=== PATIENT | male | born 1950 | race Caucasian/White ===

== ENCOUNTER 2018-12-02 18:26 | Emergency (ER) | payer MEDICARE, SELFPAY ==
[2018-12-02 18:26] VITALS: BP 138/88; PULSE 117; RESP 18; TEMP 36.3; O2SAT 95; BMI 33.0
--- NOTE | 2018-12-02 18:46 | ED.DCSUM_ITS ---
- ER Visit Summary Date of Service: 12/02/18 Chief Complaint: Right thumb laceration History of Present Illness: The patient is a 68 M with a laceration to the right thumb. He was working with a wrench when it slipped and his right hand hit a rested part of a truck. It cut him on the base of the right thumb. His last tetanus shot is unknown. He was able to apply pressure and stop the bleeding at home. Physical Examination: Signs reviewed. Right hand exam reveals a 1.5 cm lacer ation at the base of the right thumb. There is no bleeding at this time. It is tender to palpation. He has full range of motion of the thumb. Test Results: None performed Emergency Department Course and Treatment: 4, 5?0 simple nylon sutures were placed in the right thumb. Lidocaine was used to anesthetize the area. Chlorhexidine was used to cleanse the area. I explored the wound and he has full range of motion without any tendon involvement. He will have the sutures out in 7-10 days. Treatment Plan: [] Disposition: Discharge Impression: Right thumb laceration, 1.5 cm Laceration repair by ED physician This note was generated with [employer] dictation software. It may contain incorrect words, spelling, and punctuation that were not noted in review of the chart prior to signing ED Disposition - Plan for ED Patient: Referrals: Alvarez Norris MD [Primary Care Provider] -
[2018-12-02] MEDS: Diphth,Pertuss(Acell),Tet Vac 0.5 ML Vial IM (18:57)
--- NOTE | 2018-12-02 19:16 | ED.DEP ---
ED Disposition - Plan for ED Patient: Disposition: Home or Assisted Living Instructions: ED Laceration All Referrals: Alvarez Nroris MD [Primary Care Provider] -
== END 2018-12-02 19:28 | disposition home or self-care (01) ==
PROVIDERS: Emergency Provider Emergency Medicine
DX: S61.011A Laceration without foreign body of right thumb without damage to nail, initial encounter (principal); W22.8XXA Striking against or struck by other objects, initial encounter; Y93.9 Activity, unspecified; Y92.9 Unspecified place or not applicable; I10 Essential (primary) hypertension; E03.9 Hypothyroidism, unspecified; G47.33 Obstructive sleep apnea (adult) (pediatric); Z79.01 Long term (current) use of anticoagulants; Z79.899 Other long term (current) drug therapy; Z72.0 Tobacco use
CPT/HCPCS: 12001; 90471; 90715; 99283

== ENCOUNTER → 2021-01-29 12:51 | Outpatient (CLI) | payer MEDICARE, SELFPAY ==
--- NOTE | 2021-01-29 12:54 | CT_ITS ---
STUDY: CT MAXILLOFACIAL SINUSES REASON FOR EXAM: Male, 70 years old. RECURRENT SINUSITIS RADIATION DOSAGE (If Supplied By Facility): CTDIvol = ( 33.06 ) mGy, DLP = ( 854.51 ) mGycm TECHNIQUE: The patient was scanned in a multi detector CT scanner. High resolution axial imaging was performed without the administration of intravenous contrast material. Sagittal and coronal images were reconstructed. Individualized dose optimization techniques were used for this CT. COMPARISON: None. FINDINGS: FRONTAL SINUSES: Opacification the right frontal sinus consistent with sinusitis. ETHMOIDAL SINUSES: Opacification of multiple right ethmoid air cells consistent with sinusitis. MAXILLARY SINUSES: Normal aeration, without mucosal inflammatory disease. SPHENOIDAL SINUSES: Mucosal thickening of the right sphenoid sinus consistent with sinusitis. The ostiomeatal units are occluded bilaterally. Normal bilateral middle turbinates. Normal bilateral inferior turbinates. There is a right sided nasal septal deviation with a right sided nasal septal spur. There is patency of the bilateral nasal airways. The visualized osseous structures are normal. The visualized bilateral orbital contents are normal. CT/Sinus/Facial Bone IMPRESSION: 1. Chronic right frontal, ethmoid, and sphenoid sinusitis. 2. Deviation of nasal septum to the right with a bony spur projecting between the right middle and inferior turbinates. 3. Occluded ostiomeatal units bilaterally. Electronically Signed: Kieran Orellana MD at 14:44 EDT Tel , Service support ,
== END ==
PROVIDERS: PCP Family Medicine; Referring Provider Otolaryngology Otolaryngology/Facial Plastic Surgery; Visit Provider Otolaryngology Otolaryngology/Facial Plastic Surgery
DX: J01.11 Acute recurrent frontal sinusitis (principal)
CPT/HCPCS: 70486

== ENCOUNTER → 2021-04-21 15:21 | Outpatient (CLI) | payer MEDICARE, SELFPAY | PROVIDERS: PCP Family Medicine; Referring Provider Otolaryngology Otolaryngology/Facial Plastic Surgery; Visit Provider Otolaryngology Otolaryngology/Facial Plastic Surgery | DX: J32.9 Chronic sinusitis, unspecified (principal) | CPT/HCPCS: 87070; 87205 ==

== ENCOUNTER 2021-12-21 14:03 | Outpatient (CLI) | payer MEDICARE, SELFPAY ==
[2021-12-21 15:45] LABS: PSA,Total - Annual Screen 2.92 ng/mL (0.00-4.00)
== END 2021-12-21 23:59 | disposition home or self-care (01) ==
LOC: LAB 14:06
PROVIDERS: PCP Family Medicine; Referring Provider Urology; Visit Provider Urology
DX: Z12.5 Encounter for screening for malignant neoplasm of prostate (principal)
CPT/HCPCS: 36415; 84153; G0103

== ENCOUNTER → 2022-09-02 | Outpatient (CLI) | payer MEDICARE, SELFPAY ==
--- NOTE | 2022-09-02 06:29 | ECHOD_ITS ---
Version 2 Reason For Study: DYSPNEA Procedure This was a 2D Doppler, Color Flow transthoracic echocardiogram. Exam performed in department. Left Ventricle Normal LV size. Left ventricular systolic function is normal. The estimated ejection fraction is 55 %. Stage 1 diastolic dysfunction. No regional wall motion abnormalities noted. Right Ventricle Normal RV size. Normal systolic function. Atria Normal left atrium. Normal right atrium. Mitral Valve Normal mitral valve. Tricuspid Valve Normal tricuspid valve. Aortic Valve Normal aortic valve. Trisinus/trileaflet aortic valve. Pulmonic Valve The pulmonic valve is not well visualized. Great Vessels Normal aortic root. The pulmonary artery is normal size. Pericardium/Pleural No pericardial effusion. MMode/2D Measurements & Calculations LAV(MOD-bp): 57.7 ml LVAd ap4: 23.7 cm2 SV(MOD-sp4): 32.5 ml LAV(MOD-bp) Indexed: 24.4 ml/m2 LVLd ap4: 7.8 cm LAV(MOD-sp2): 75.6 ml EDV(MOD-sp4): 63.0 ml LAV(MOD-sp4): 41.2 ml EDV(sp4-el): 61.3 ml LVAs ap4: 14.7 cm2 LVLs ap4: 6.8 cm ESV(MOD-sp4): 30.5 ml ESV(sp4-el): 27.2 ml EF(MOD-sp4): 51.6 % EF(sp4-el): 55.7 % SV(sp4-el): 34.2 ml LA A4 area: 16.6 cm2 RA A4 area: 15.7 cm2 Time Measurements MV dec time: 0.21 sec Doppler Measurements & Calculations MV E max artemio: 76.3 cm/sec Lat Peak E' Artemio: 8.2 cm/sec Med Peak E' Artemio: 8.1 cm/sec MV A max artemio: 122.1 cm/sec E/E' lat: 9.3 E/E' med: 9.4 MV E/A: 0.62 MV V2 max: 114.4 cm/sec Ao V2 max: 119.3 cm/sec MV max P.2 mmHg MV dec slope: 366.5 cm/sec2 Ao max P.8 mmHg MV V2 mean: 68.0 cm/sec Ao V2 mean: 82.5 cm/sec MV mean P.1 mmHg Ao mean P.1 mmHg MV V2 VTI: 33.0 cm Ao V2 VTI: 25.6 cm LV V1 max: 96.2 cm/sec PA V2 max: 97.2 cm/sec LV V1 max P.7 mmHg PA V2 mean: 71.3 cm/sec LV V1 mean P.0 mmHg LV V1 mean: 66.6 cm/sec LV V1 VTI: 21.4 cm ECHO/Echo Complete Interpretation Summary Normal LV size. Left ventricular systolic function is normal. The estimated ejection fraction is 55 %. Stage 1 diastolic dysfunction. Ordering Physician: Kevin Briones Performed By: Ester Carbajal RCS
--- NOTE | 2022-09-03 12:08 | STRESSREP ---
Stress Test Report Exercise myocardial perfusion stress test. 72-year-old male with a history of shortness of breath and coronary calcification on CT. Stress protocol: Resting EKG demonstrates sinus rhythm with a rate of 82 bpm right bundle branch block is noted resting blood pressure is 130/86 mmHg. The patient exercised according to regular Terry protocol for 3 minutes the maximum heart rate attained was 1 and 33 bpm which was 90% of max impacted heart rate the maximum workload was 4.6 metabolic equivalents. At rest there were no ST or T wave changes noted suggest ischemia at peak exercise nonspecific ST changes were noted we did not do the criteria for ischemia. The peak blood pressure is 180/106 mmHg. Myocardial perfusion protocol. 11.8 mCi of technetium 99m sestamibi was injected at rest. 0.4 mg of regadenoson was infused per usual protocol. At peak infusion 34.5 mCi of technetium 99m sestamibi was injected stress images were obtained stress and rest images were reconstructed and compared in the short axis vertical long and horizontal long axis. Gated images were also obtained for Perfusion SPECT analysis: Review of the stress images demonstrate normal uptake of tracer noted in all areas of the myocardium. The resting images similarly demonstrate normal uptake of tracer noted in all areas of the myocardium. No areas of reversibility are noted to suggest ischemia no previous infarct is noted. Gated SPECT analysis: The gated ejection fraction is 67%. Conclusion: Normal pharmacologic myocardial perfusion stress test at a low workload. Preserved ejection fraction.
== END | disposition home or self-care (01) ==
PROVIDERS: PCP Family Medicine; Visit Provider Internal Medicine Cardiovascular Disease
DX: R06.09 Other forms of dyspnea (principal); E11.22 Type 2 diabetes mellitus with diabetic chronic kidney disease; N18.30 Chronic kidney disease, stage 3 unspecified; I25.10 Atherosclerotic heart disease of native coronary artery without angina pectoris; E78.5 Hyperlipidemia, unspecified; I71.40 Abdominal aortic aneurysm, without rupture, unspecified; E66.9 Obesity, unspecified; I12.9 Hypertensive chronic kidney disease with stage 1 through stage 4 chronic kidney disease, or unspecified chronic kidney disease; I45.10 Unspecified right bundle-branch block; Z72.0 Tobacco use
CPT/HCPCS: 78452; 93017; 93306; A9500; A4216

== ENCOUNTER 2022-09-13 06:39 | Day surgery (SDC) | payer MEDICARE, SELFPAY ==
--- NOTE | 2022-09-06 11:21 | RAD_ITS ---
INDICATION: dyspnea EXAMINATION/TECHNIQUE: X-RAY - XR Chest 2 Views COMPARISON: Chest x-ray from May 19, 2017. FINDINGS: Frontal and lateral views of the chest were obtained. Hyperinflation. The cardiac silhouette is normal in size. Mild chronic interstitial changes are similar to the prior exam. No confluent airspace disease. No pneumothorax. Possible small bilateral pleural effusions. RAD/Chest PA and Lateral IMPRESSION: Mild chronic interstitial changes bilaterally. Suspected COPD. No confluent airspace disease. Electronically Signed: José Miguel Terry MD at 7:33 EST ,
[2022-09-06 12:21] LABS: Absolute Lymphocyte Count 1.44 X10^3/uL (0.83-4.51); Absolute Neutrophil Count 3.6 X10^3/uL (2.0-7.7); Basophil# 0.04 X10^3/uL; Basophil% 0.7 % (0-1); Eosinophils% 5.1 % (0-5); Hematocrit 48.5 % (40-54); Hemoglobin 16.5 g/dL (13.0-16.5); Lymphocyte # 1.44 X10^3/ul (0.83-4.51); Lymphocyte % 24.5 % (19-41); Mean Corpuscular Hgb 33.5 pg (27.0-32.0); Mean Corpuscular Volume 98.4 fL (80-94); Mean Platelet Vol. 9.9 fl (6.2-12.0); Monocyte% 8.5 % (0-10); NRBC Flagged by Analyzer 0 % (0-5); Neutrophil # 3.56 X10^3/uL (2.7-7.7); Neutrophil % 60.7 % (47-70); Platelet Count 158 K/mm3 (150-450); RBC Distribution Width CV 12.8 % (11.6-14.6); Red Blood Count 4.93 M/mm3 (4.6-6.2); White Blood Count 5.9 K/mm3 (4.4-11.0)
[2022-09-06 12:47] LABS: Anion Gap 4 (5-15); BUN 18 mg/dL (7-18); BUN/Creat Ratio 11.5 RATIO (10-20); Calcium,Total 9.3 mg/dL (8.5-10.1); Chloride 108 mmol/L (98-107); Creatinine, Serum 1.57 mg/dL (0.70-1.30); EST Glomerular Filtration Rate 46 mL/min (>60); Est Glom Filt Rate - Afr Amer 56 mL/min (>60); Glucose 99 mg/dL (74-106); Potassium 4.1 mmol/L (3.5-5.1); Sodium Level 141 mmol/L (136-145)
--- NOTE | 2022-09-08 16:04 | PCM.HP.BLA ---
History and Physical Date of Admission: 09/13/22 Jersey Harry is a 71-year-old male with a history of hypertension, hyperlipidemia, tobacco abuse, chronic kidney disease, diabetes mellitus who has chronic shortness of breath.? He was scheduled for and underwent a routine CAT scan for cancer screening.? He was noted to have moderate coronary calcification but no suspicious lung lesions.? He noted he had shortness of breath and a right bundle branch block noted on the EKG. He also had an ultrasound which demonstrated mild ectasia of the ascending aorta, and infrarenal aneurysm measuring 3.5 x 3.3 cm. Therefore he recently established with us for a cardiac evaluation. ? He denies any chest pain or paroxysmal nocturnal dyspnea or palpitations has had no neck arm or jaw discomfort to suggest angina.? He has been compliant with his medications.?? His lipid profile demonstrated total cholesterol 104, LDL 54 and HDL of 39. He did undergo a stress test which was normal but at a low workload. Because of his continuing SOB and moderate calcification noted on CT scan he will undergo a diagnostic heart cath. [facility] Medical History? AAA (abdominal aortic aneurysm) without rupture Acute cystitis Acute kidney injury Acute prostatitis BPH (benign prostatic hyperplasia) CKD (chronic kidney disease), stage III COPD (chronic obstructive pulmonary disease) Coronary artery calcification seen on CAT scan Essential hypertension Hyperlipidemia Hypothyroidism Obesity ELLA treated with BiPAP Right bundle branch block (RBBB) Septic shock Septicemia due to E. coli Tobacco abuse Type 2 diabetes mellitus without complication Surgical History? History of colonoscopy (02/03/22) History of esophagogastroduodenoscopy (EGD) (02/03/22) History of hernia repair (~1960) History of prostate biopsy Family History? Mother LymphomaFather CAD (coronary artery disease)Brother Heart disease Social History? Smoking Status:? Current every day smoker alcohol intake:? never substance use type:? does not use ROS Const Const: Negative for fatigue, weakness, headache(s), frequent falls, difficulty sleeping or excessive sweating Eyes Eyes: Negative for loss of peripheral vision, transient loss of vision, blurry vision, double vision or tunnel vision ENT ENT: Negative for headache(s), dizziness, Nosebleed/epistaxis or balance problems Cardio Chest Pain: No Palpitations: No Edema: None Muscle aches with walking: None Resp Respiratory: Positive for SOB with activity; Negative for SOB at rest, SOB orthopnea\SOB lying down, Cough or paroxysmal nocturnal dyspnea Additional Details: using B-PAP GI GI: Negative nausea, vomiting, heartburn or black,tarry stools : Negative for hematuria Musc Musc: Negative for muscle aches/ myalgia, muscle weakness, joint pain or balance problems Skin Skin: Negative non-healing lesions, rash or unusual bruising Neuro Neuro: Negative for dizziness, lightheadedness, near syncope, syncope, orthostatic symptoms, frequent falls, headache(s), weakness, confusion, memory loss, blurry vision, double vision, vertigo or lack of coordination Mario Hematologic/Lymphatic: Negative for easy bleeding or easy bruising Endo Endo: Negative for fatigue, excessive sweating, flushing or increased thirst/drinking Psych Psych: Negative for anxiety or depression Allergy Allergy/Immunology: Negative for hives and Negative for rash Cardiology Exam Const Appearance: cooperative, healthy appearing, no acute distress, well developed and well groomed Nutritional Appearance: average body habitus and well nourished Orientation: alert, awake and oriented x3 Head Head: normal to inspection, normocephalic and atraumatic Ears: hearing grossly normal bilaterally and external ears normal Nose: external nose normal, nares normal, nasal mucous membranes and turbinates normal, septum normal and no nasal discharge Face and Sinus: face symmetric Mouth: oral mucosae normal, tongue normal, oropharynx normal and moist mucous membranes Teeth and gingiva: dentition normal Throat: posterior oropharynx normal, tonsils normal and uvula midline Eyes General: appearance normal, both eyes and all related structures Eyelids: eyelids normal Conjunctivae: conjunctivae normal Pupils: PERRL, normal by confrontation and accommodation normal EOM: EOM intact bilaterally Neck Neck: normal visual inspection, trachea midline and no JVD JVD: +5 Carotids: normal carotid upstroke and bounding pulses Chest Chest inspection: normal inspection of the chest, symmetric chest movement and normal respiratory effort Auscultation: Bilateral: Clear to Auscultation Cardio Palpation: normal PMI Rate: regular rate Rhythm: regular rhythm Heart sounds: S1 normal, S2 normal and normal, physiologic split S2; Negative rub, gallop or murmur GI GI: normal to inspection, soft, no hepatosplenomegaly and bowel sounds present Neuro General: patient alert, patient awake, patient oriented x3, gait normal, moves all extremities and no focal sensory deficit Skin Skin: no rashes or lesions noted Extremities Pulses: Normal: Right Femoral Pulse, Left Femoral Pulse, Right Dorsalis Pedis Pulse, Left Dorsalis Pedis Pulse, Right Posterior Tibial Pulse, Left Posterior Tibial Pulse, Right Radial Pulse and Left Radial Pulse Lower Extremity Edema: None: Bilateral Musculoskel Musculoskeletal: No joint tenderness Psych Psychological: normal affect Supplemental Info Supplemental Information Labs: ?? ? No Data to Display Diagnostics: ?? ? Electrocardiogram ? Chest X-Ray ? Pulmonary: ?? ? No Data to Display Assessment and Plan Assessment and Plan (1) Dyspnea on exertion: ?Status:?Acute ?Plan: He does have some dyspnea on exertion.? It is unclear how much of this is due to his lung issues and how much it is from coronary disease.? I would recommend that we obtain an echocardiogram as well as a stress test.? Depending on the results of those test further recommendations will be made. (2) Coronary artery calcification seen on CAT scan: ?Status:?Acute ?Plan: Patient is noted to have some coronary artery calcification.? I would recommend that we obtain a stress test and depending on the findings further recommendations will be made. (3) Essential hypertension: ?Status:?Chronic ?Plan: Patient has a history of essential hypertension.? Due to the infrarenal aneurysm I would recommend that we more aggressively control his blood pressure by increasing his losartan to 50 mg a day.? Depending on the findings further recommendations will be made. (4) AAA (abdominal aortic aneurysm) without rupture: ?Status:?Chronic ?Plan: He appears to have a stable abdominal aortic aneurysm which can be reviewed with appropriate ultrasound scans.? No other major changes will be made. Assessment & Plan Assessment/Plan (1) Decreased exercise tolerance: (2) Dyspnea on exertion: (3) Coronary artery calcification seen on CAT scan: (4) Essential hypertension: (5) Right bundle branch block (RBBB): PLAN: Plan Wiht pts moderate coronary calium noted on CT scan, decreased exercise tolerance and DRUMMOND will proceed with diagnostic heart cath. Follow up will be based on findings.
[2022-09-10 06:56] VITALS: BMI 33.3
--- NOTE | 2022-09-13 09:13 | CL.D_ITS ---
Patient Name: YING MATHEWS Study Date: 09/13/2022 Performing: Kevin Briones MD Ht: 72 inches 182.88 cm : 1950 Wt: 245.99 lbs 111.58 kg Age: 72 Gender: male BSA: 2.33 PROCEDURE(S) PERFORMED [id number])[facility]/COR CLINICAL PROFILE AND INDICATIONS Indications: Suspected CAD, Suspected CAD Heart Failure: None Stress/Imaging Date: 09/03/22Stress Test with SPECT MPI: Indeterminant CAD Presentations: Symptom unlikely to be ischemic. CONCLUSIONS Non obstructive coronary arteries RCA with 60 % mid circulation stenosis RECOMMENDATIONS Medical therapy DESCRIPTION OF PROCEDURE The patient arrived to the procedure lab. The risks and benefits of the procedure as well as a full description of our services here and current unavailability of surgical backup were fully explained to the patient and/or their significant other prior to the catheterization. The Timeout was completed, verifying the correct patient and procedure. The patient's procedural site was prepped and draped in the usual fashion. Local anesthetic was given subcutaneously to right radial region with Lidocaine 2%. Using a modified Seldinger technique, arterial access was obtained via the right radial artery, a 6Fr sheath was inserted. Left Coronary Artery selective angiography was performed in multiple views using a 5 Fr. 4.0 [place] catheter. Right Coronary Artery selective angiography was then performed in multiple views using a 5 Fr. 4.0 [place] catheter. Right Coronary Artery selective angiography was then performed in multiple views using a 5 Fr. JR 5 catheter. Left Ventriculography was performed in [place] projection using a 5 Fr. [place] catheter. LV to AO pullback pressures were then recorded.The arterial sheath was pulled and a TR Band was applied for hemostasis CORONARY ANGIOGRAPHY DOMINANCE: Right Dominant LEFT HEART ASSESSMENT Left Ventricular Ejection Fraction: by Echo 55 % Normal Left Ventricular systolic function LEFT MAIN: Angiographically normal LEFT ANTERIOR DESCENDING ARTERY: Mild luminal irregularities PROX LAD: 30 % Stenosis CIRCUMFLEX ARTERY: Mild luminal irregularities RIGHT CORONARY ARTERY: MID RCA: 60 % Stenosis DISTAL RCA: Mild luminal irregularities COMPLICATIONS No Complications PROCEDURE MEDICATIONS Fentanyl 50 mcg IV Versed 1 mg IV Versed 1 mg IV Oxygen: 2 L/min via nasal cannula Heparin given IA 09/13/2022 08:47:54 Verapamil 2.5mg, Ntg 100mcgs, 3000 units of Heparin given IA 09/13/2022 08:47:54 SUMMARY OF HEMODYNAMIC DATA Time AIR REST ECG 07:12:37 Art 196/95 (131) 08:42:06 AO 153/92 (123) SA 08:49:33 LV 134/14, 25 09:04:25 LV 140/12, 19 09:04:34 LVp 143/12, 24 09:04:40 AOp 0/4 (14) 09:04:47 Signed By Kevin Briones MD On 09/13/2022 09:12:57 Kevin Briones MD
== END 2022-09-13 10:35 | disposition home or self-care (01) ==
LOC: CLSP 06:40
PROVIDERS: PCP Family Medicine; Referring Provider Internal Medicine Cardiovascular Disease; Visit Provider Internal Medicine Cardiovascular Disease
DX: I25.10 Atherosclerotic heart disease of native coronary artery without angina pectoris (principal); J44.9 Chronic obstructive pulmonary disease, unspecified; N18.30 Chronic kidney disease, stage 3 unspecified; I12.9 Hypertensive chronic kidney disease with stage 1 through stage 4 chronic kidney disease, or unspecified chronic kidney disease; G47.33 Obstructive sleep apnea (adult) (pediatric); E03.9 Hypothyroidism, unspecified; N40.0 Benign prostatic hyperplasia without lower urinary tract symptoms; F17.200 Nicotine dependence, unspecified, uncomplicated; E78.5 Hyperlipidemia, unspecified; Z79.82 Long term (current) use of aspirin; Z79.899 Other long term (current) drug therapy
CPT/HCPCS: 36415; 71046; 80048; 85025; 93454; 99152; 99153; J7040; C1769; C1894; Q9967

== ENCOUNTER → 2024-01-31 | Outpatient (CLI) | payer MEDICARE, SELFPAY ==
--- NOTE | 2024-01-31 08:30 | RDU_ITS ---
Reason For Study: HTN Right Renal Artery Left Renal Artery Right renal artery ostium 88.8/23 Left renal artery ostium 68.7/19.4 RSV/EDV. PSV/EDV. Right renal artery proximal Left renal artery proximal PSV/EDV 119.8/32.1 PSV/EDV. 86.4/24.8 . Right renal artery mid 76.7/12.1 Left renal artery mid 84.2/19.3 PSV/EDV. PSV/EDV . Right renal artery distal 51.5/13.1 Left renal artery distal 74.5/17.6 PSV/EDV. PSV/EDV. Right RAR 1.42. Left RAR 1.03. Right Renal Parenchyma Left Renal Parenchyma Upper Pole Medula 23.9/6.4 PSV/EDV. Left upper pole medulla 23.6/6.2 Right upper pole medulla EDR 0.3 . PSV/EDV . Right upper pole medulla R.I. Left upper pole medulla EDR 0.3 . 0.73 . Left upper pole medulla R.I. 0.74 . Upper [place]dan Cortx 18.7/6.9 PSV/EDV. UP Cortex 14.9/4.9 PSV/EDV. Right upper pole cortex EDR 0.4 . Left upper pole cortex EDR 0.3 . Right upper pole cortex R.I. 0.63 . Left upper pole cortex R.I. 0.67 . Right lower Pole medulla 27.7/7.8 Left lower Pole medulla 22.8/7.1 PSV/EDV . PSV/EDV . Right lower pole medulla EDR 0.3 . Left lower pole medulla EDR 0.3 . Right lower pole medulla R.I. Left lower pole medulla R.I. 0.69 . 0.72 . Lower Pole Cortx 15.8/5.8 PSV/EDV. Lower Pole Cortex 16..3/5.5 Left lower pole cortex EDR 0.4 . PSV/EDV. Left lower pole cortex R.I. 0.64 . Right lower pole cortex EDR 0.3 . Left Renal Hilar Right lower pole cortex R.I. 0.66 . LT Hilar avg 76.1/23.2 PSV/EDV . Right Renal Hilar Left hilar acceleration time 60 Right Hilar avg 53.3/17.8 PSV/EDV. m/sec. Right hilar acceleration time 60 Left Renal Dimensions m/sec. Left kidney size 12.28 cm . Right Renal Dimensions Left cortical dimension 1.53 cm . Right kidney size 12.19 cm . Right cortical dimension 1.36 cm . Aorta Proximal abdominal aorta 1.66 x 1.66 cm . Proximal abdominal aorta peak systolic velocity is 84.2 cm/sec . Distal abdominal aorta 2.89 x 3.07 x 2.92 cm . Distal abdominal aorta peak systolic velocity is 77.6 cm/sec . VL/Renal Artery Duplex Ultrasound Interpretation Summary Right renal artery patent with normal velocities and no evidence of stenosis. Left renal artery patent with normal velocities and no evidence of stenosis. Right renal vein patent. Left renal vein patent. Right kidney normal in size. Left kidney normal in size. Abdominal aortic aneurysm meaasuring 3.07 cm Ordering Physician: Antoinette Tripathi Referring Physician: Levon Bowers Performed By: Eli Branham RVT
== END | disposition home or self-care (01) ==
PROVIDERS: PCP Family Medicine; Referring Provider Physician Assistant Medical; Visit Provider Physician Assistant Medical
DX: I12.9 Hypertensive chronic kidney disease with stage 1 through stage 4 chronic kidney disease, or unspecified chronic kidney disease (principal); N18.30 Chronic kidney disease, stage 3 unspecified
CPT/HCPCS: 93975

== ENCOUNTER → 2024-12-31 | Outpatient (CLI) | payer MEDICARE, SELFPAY ==
[2024-12-31 14:27] LABS: PSA,Total- Diagnostic 1.94 ng/mL (0.00-4.00)
== END | disposition home or self-care (01) ==
LOC: LAB 12:33
PROVIDERS: PCP Family Medicine; Visit Provider Urology
DX: R97.20 Elevated prostate specific antigen [PSA] (principal)
CPT/HCPCS: 36415; 84153

== ENCOUNTER → 2025-03-15 | Outpatient (CLI) | payer MEDICARE, SELFPAY ==
[2025-03-15 14:06] LABS: ALB/GLOB Ratio 1.2 RATIO (0.9-2.4); AST(SGOT) 18 U/L (<=37); Alanine Aminotransfer ALT/SGPT 16 U/L (<=46); Albumin, Serum 4.1 g/dL (3.4-4.8); Alkaline Phosphatase 76 U/L (40-129); Anion Gap 9 (5-15); BUN 21 mg/dL (4-19); BUN/Creat Ratio 13.7 RATIO (10-20); Calcium,Total 9.4 mg/dL (7.6-11.0); Chloride 109 mmol/L (98-108); Cholesterol 102 mg/dL (<=200); EST Glomerular Filtration Rate 48 (>60); Globulin 3.6 g/dL (2.2-4.2); Glucose 92 mg/dL (70-99); High Density Lipoprotein 34 mg/dL; Low Density Lipoprotein Calc. 51 mg/dL; Potassium 4.2 mmol/L (3.3-5.1); Protein, Total 7.6 g/dL (5.9-8.4); Sodium Level 141 mmol/L (133-145); Total Bilirubin 0.63 mg/dL (0.00-1.30); Triglycerides 81 mg/dL; Very Low Density Lipoprotein 16 mg/dL (5-40); cholesterol:hdl ratio screen 2.97
== END | disposition home or self-care (01) ==
LOC: LAB 12:17
PROVIDERS: PCP Family Medicine; Referring Provider Physician Assistant Medical; Visit Provider Physician Assistant Medical
DX: I71.40 Abdominal aortic aneurysm, without rupture, unspecified (principal); E78.5 Hyperlipidemia, unspecified
CPT/HCPCS: 36415; 80053; 80061